=== PATIENT | male | born 1980 | race Caucasian/White ===

== ENCOUNTER → 2021-03-05 19:45 | Outpatient (CLI) | payer BC, SELFPAY | PROVIDERS: Visit Provider Nurse Practitioner Family | DX: Z20.822 Contact with and (suspected) exposure to COVID-19 (principal) | CPT/HCPCS: C9803; U0003; U0005 ==

== ENCOUNTER → 2021-03-07 19:28 | Outpatient (CLI) | payer BC, SELFPAY | PROVIDERS: Visit Provider Nurse Practitioner Family | DX: Z20.822 Contact with and (suspected) exposure to COVID-19 (principal) | CPT/HCPCS: C9803; U0003; U0005 ==

== ENCOUNTER 2022-03-04 04:54 | Emergency (ER) | payer BC, SELFPAY ==
[2022-03-04 04:57] VITALS: BP 131/86; PULSE 64; RESP 16; TEMP 36.7; O2SAT 98; BMI 27.8
--- NOTE | 2022-03-04 05:04 | PC.NURSE ---
visual acuity both 20/20 lt eye 20/25 rt eye 20/25
--- NOTE | 2022-03-04 05:33 | HMH.EDEYEP ---
Discharge Plan Disposition Patient Disposition: Home, Self-Care Chief Complaint: Eye Problems Prescriptions Prescriptions: No Action buprenorphine-naloxone 1 EACH film 1 each SL DAILY Referrals Follow up/Referrals: Daniel Davidson MD [Primary Care Provider] - See instructions Activity Restrictions/Add. Instructions Additional Instructions/Restrictions: call dr guerrero this am for follow up Clinical Impressions Clinical Impression: Corneal FB (foreign body) Instructions Patient Instructions: DI for Corneal Foreign Body-Eye Discharge ED Provider: Daniel Davidson Eye Problem HPI General Chief complaint: Eye Problems Stated complaint: Right eye pain from rust Time Seen by Provider: 03/04/22 05:33 Mode of Arrival: Ambulatory Source of Information: Patient and Medical Record Limitations: No Limitations Description of Symptoms (Recalled from ER Triage Doc. by RN): pt states last night was working on an exhuast and a piece of rust fell into rt eye. pt c/o rt eye pain History of Present Illness HPI Narrative: fb rt eye since last pm chief complaint: foreign body Onset (ago): hour(s) Location: right eye Eye Symptoms: foreign body sensation Place: home Mechanism: occurred while hammering/grinding Severity: moderate Associated symptoms: none Related Data Patient tetanus UTD: Yes Home Medications Medication Instructions Recorded Confirmed buprenorphine 8 mg-naloxone 2 mg 1 each SL DAILY Pain 02/02/19 03/04/22 sublingual film Allergies Allergy/AdvReac Type Severity Reaction Status Date / Time No Known Allergies Allergy Verified 03/07/21 18:57 [facility] Social History Smoking Status: Current every day smoker alcohol intake: never current occupational status: employed Travel in the last 8 weeks: None ROS Obtained: Yes All systems reviewed & no additional complaints except as documented Eyes Eyes: Reports as per HPI, Denies change in vision, Denies loss of vision, Reports sensitivity to light and Denies photophobia Neurologic Neurologic: Denies loss of vision Physical Exam General General appearance: alert Head Head exam: normocephalic Eye Eye exam: Present PERRL, EOMI and other (fb rt corneal at 0800) Expanded Eye Exam Visual acuity (R) = 20/: 25 Visual acuity (L) = 20/: 25 With correction: No ENT ENT exam: Present mucous membranes moist Neck Neck exam: Present trachea midline Respiratory Respiratory exam: Present normal lung sounds bilaterally Cardiovascular Cardiovascular exam: Present regular rate Neurological Exam Neurological exam: Present alert, oriented X3 and CN II-XII intact Skin Skin exam: Absent rash Medical Decision Making Medical Records Medical records reviewed: Yes I reviewed the patient's medical records. Aba Inquiry Pt receiving controlled substance: No Vital Signs: 03/04/22 04:57 Temperature 98.1 F Temperature Source Oral Pulse Rate [Right] 64 Respiratory Rate 16 Blood Pressure [Right Arm] 131/86 Blood Pressure Mean [Right Arm] 101 02 Sat by Pulse Oximetry 98 Lab Data Lab results reviewed: Yes I reviewed the patient's lab results. Medical Decision Narrative: retained fb rt eye with rust ring Procedures Eye Exam/FB Removal Location: eye (R) Topical anesthetic used: tetracaine Fluorescein Stick(s) used: No Procedure performed under: direct visualization with magnification Foreign body: other (rust ring) Evidence of corneal penetration: No Technique: cotton tip swab Post-procedure medication: ophthalmic antibiotic Patient tolerated procedure: no complications Complications: incomplete foreign body removal and residual rust ring Critical Care Time Critical Care Time Critical Care Time: No Attestation: On 03/04/22, the high probability of a clinically significant, sudden or life threatening deterioration of the following system(s) required my full and direct attention, intervention and personal management. The ti
[2022-03-04 05:44] VITALS: BP 129/87; PULSE 68; RESP 16; TEMP 36.7; O2SAT 98
== END 2022-03-04 05:45 | disposition home or self-care (01) ==
PROVIDERS: Emergency Provider Emergency Medicine; PCP Emergency Medicine
DX: T15.01XA Foreign body in cornea, right eye, initial encounter (principal); F17.210 Nicotine dependence, cigarettes, uncomplicated
CPT/HCPCS: 99283

== ENCOUNTER 2024-08-25 10:29 | Outpatient (CLI) | payer BC, SELFPAY | END 2024-08-25 23:59 | disposition home or self-care (01) | LOC: SL 10:31 | PROVIDERS: Visit Provider Specialist | DX: G40.909 Epilepsy, unspecified, not intractable, without status epilepticus (principal) | CPT/HCPCS: 95819 ==

== ENCOUNTER 2024-09-08 08:08 | Day surgery (SDC) | payer BC, SELFPAY ==
[2024-09-06 16:32] VITALS: BMI 27.8
[2024-09-08] VITALS (8 sets, daily range): BP systolic 101–139; BP diastolic 59–85; PULSE 51–66; RESP 15–16; TEMP 36.1; O2SAT 97–100
[2024-09-08] MEDS: LACTATED RINGERS 1000ML 1,000 ML 50 ML IV (09:28)
--- NOTE | 2024-09-08 09:28 | EXP.ANES.CKL ---
[facility] Disclaimer: The information contained in this section may have been updated after the patient was seen, as this information can be updated by other users. Medical History (Updated 09/08/24 @ 09:26 by Sana Hough RN) Anxiety and depression Loss of consciousness Seizure Surgical History History of tonsillectomy Family History Father Cancer Hypertension Mother Glaucoma Social History (Updated 09/08/24 @ 09: by Sana Hough RN) Smoking Status: Current every day smoker tobacco type: cigarettes packs per day: 1 alcohol intake: never substance use type: former substance user and painkillers current occupational status: unemployed Travel in the last 8 weeks: None caffeine: Yes Have you lived/traveled outside [place] in past 30 days?: No Contact w/someone who lives/traveled outside [place] past 30 days?: No Exposure to someone with infectious disease in past 14 days?: No Do you have a fever (greater than 100.4 F or 38 C)?: No Have you tested positive for COVID-19: No Exposed to someone with COVID-19 in past 14 days?: No Do you have a sore throat?: No Do you have a cough?: No Do you have any weakness?: No Are you experiencing any nausea/vomitting?: No Do you have any diarrhea?: No Are you experiencing any unusual bleeding?: No Do you have any muscle aches/pain?: No Do you have any abdominal pain?: No Are you experiencing loss of taste or smell?: No [facility] Anesthesia Checklist Patient Identification Patient Identification: Arm Band Structural Data Admitted From: Home Planned Operative Procedure/s: Colonoscopy Consent for Planned Operative Procedure(s) Verified: Yes Verified Documents: Surgical Consent and History and Physical NPO Status Verified Time NPO: 00:00 Additional verifications Anesthesia Reactions: No Airway Assessment Mallampati Score:: Class II C-Spine Mobility Assessed: Yes TMJ Mobility Assessed: Yes Dentition: Good Dentition Neurological Assessment Level of Consciousness: Awake, Alert and Appropriate Anesthesia Plan Anesthesia Risk discussed: Yes Anesthesia Plan: Verified ASA Class: II Anesthesia Type: MAC
--- NOTE | 2024-09-08 09:56 | P.HP_ITS ---
History of Present Illness *Admission Date: 09/08/24 *Reason for visit:: Screening high risk (family history) *History of present illness: Mr. To is a 44-year-old gentleman who is here for initial screening colonoscopy. His father had colon cancer at the age of 42. The examination is deemed medically necessary for screening colonoscopy. The patient has been seen, interviewed and examined prior to the procedure by both myself and the anesthesia provider. [facility] Disclaimer: The information contained in this section may have been updated after the patient was seen, as this information can be updated by other users. Medical History (Updated 09/08/24 @ 10:06 by Rajiv El II, MD) Anxiety and depression Loss of consciousness Seizure Surgical History History of tonsillectomy Family History Father Cancer Hypertension Mother Glaucoma Social History (Updated 09/08/24 @ 09:26 by Sana Hough RN) Smoking Status: Current every day smoker tobacco type: cigarettes packs per day: 1 alcohol intake: never substance use type: former substance user and painkillers current occupational status: unemployed Travel in the last 8 weeks: None caffeine: Yes Have you lived/traveled outside [place] in past 30 days?: No Contact w/someone who lives/traveled outside [place] past 30 days?: No Exposure to someone with infectious disease in past 14 days?: No Do you have a fever (greater than 100.4 F or 38 C)?: No Have you tested positive for COVID-19: No Exposed to someone with COVID-19 in past 14 days?: No Do you have a sore throat?: No Do you have a cough?: No Do you have any weakness?: No Are you experiencing any nausea/vomitting?: No Do you have any diarrhea?: No Are you experiencing any unusual bleeding?: No Do you have any muscle aches/pain?: No Do you have any abdominal pain?: No Are you experiencing loss of taste or smell?: No Other Medical History Have you received the Flu Vaccine for this season: Yes Have you received the Pneumonia Vaccine: No Review of Systems Review of Systems Review of systems (narrative): Negative *Cardiovascular Comments: Negative *Gastrointestinal Comments: Negative *Genitourinary Comments: Negative *Musculoskeletal Comments: Negative *Neurologic Comments: Negative Meds Home Medications and Allergies Home Medications ?Medication ?Instructions ?Recorded ?Confirmed ?Type buprenorphine 8 mg-naloxone 2 mg 1 each sublingual DAILY Pain 02/02/19 09/08/24 History sublingual film levetiracetam 500 mg tablet 500 mg PO DAILY 07/02/24 09/08/24 History peg 3350-electrolytes 236 240 ml PO Q10M colonscopy #4,000 mL 08/25/24 Rx gram-22.74 gram-6.74 gram-5.86 gram solution (Golytely) New Prescriptions to Start Prescriptions: Allergies Allergy/AdvReac Type Severity Reaction Status Date / Time No Known Allergies Allergy Verified 09/08/24 09:11 Exam Data for Last 24 hours Vital signs and Labs for Last 24 Hours: Temp Pulse Resp BP Pulse Ox O2 Del Method 97.0 F L 58 L 16 133/68 100 Room Air 09/08/24 09:14 09/08/24 09:14 09/08/24 09:14 09/08/24 09:14 09/08/24 09:14 09/08/24 09:14 I & O for Last 24 hours: Intake & Output 09/05/24 09/06/24 09/07/24 09/08/24 23:59 23:59 23:59 23:59 Weight 200 lb *Routine HEENT Exam Head: Present normocephalic Eye: Present EOMI and PERRL ENT: Present mucous membranes moist *Routine Neck Exam Neck: Present supple *Routine Respiratory Exam Respiratory: Present CTA bilaterally *Routine Cardiovascular Exam Cardiovascular: Present RRR *Routine Abdominal Exam Abdominal: Present soft and normoactive bowel sounds; Absent tenderness *Routine Rectal Exam Rectal:: deferred *Routine Genitalia Exam Genitalia:: deferred *Routine Extremities Exam Extremities: Absent cyanosis, clubbing or edema *Routine Skin Exam Skin: Present warm; Absent rash *Routine Neurological Exam Neurological: Present alert and oriented X3 Assessment and Plan *Assessment and plan (1) Screening for colorectal cancer: Status: Acute Category: Medical Code(s): Z12.11 - Encounter for screening for malignant neoplasm of colon; Z12.12 - Encounter for screening for malignant neoplasm of rectum (2) Family history of colon cancer in father: Status: Acute Category: Medical Code(s): Z80.0 - Family history of malignant neoplasm of digestive organs Plan A/P: 1. High risk screening colonoscopy is the preprocedural diagnosis. The patient's father had colon cancer at the age of 42 and this is the patient's first colonoscopy for screening. The patient will be anesthetized/sedated using MAC sedation. The patient has been seen and examined. Cardiac and lung assessment prior to the examination is stable. Proceed with planned screening colonoscopy
--- NOTE | 2024-09-08 10:06 | HMH.PROCNOTE ---
[facility] Procedure Note Date: 09/08/24 Time: 10:10 Procedure Note:: Aborted colonoscopy Procedure Report: Flexible sigmoidoscopy Endoscopist: Rajiv El II, MD Referring physician: Edy Bey DO Date of Procedure: September 08, 2024 Equipment: Olympus 190 variable stiffness pediatric colonoscope Sedation: MAC sedation Indication: Mr. To is a 44-year-old gentleman who is here for initial high risk screening colonoscopy. The patient's father had colon cancer at the age of 42. The patient reports no abdominal pain, weight loss, change in his bowel habits or rectal bleeding. Procedure: Prior to the procedure, a history and physical exam was performed, and patient's medications and allergies were reviewed. The risks, benefits and alternatives of the sedation and procedure were discussed with the patient. All questions were answered and informed consent was obtained. The patient was brought to the procedure room. Patient identification and proposed procedure were verified by the physician and the nurse. The patient was placed in a left lateral decubitus position and the scope was passed under direct vision. Throughout the procedure, the patient's blood pressure, pulse, and oxygen saturations were monitored continuously. The colonoscopy was accomplished without difficulty. The patient tolerated the procedure well. Findings: On digital rectal examination there was normal rectal tone. There were no external hemorrhoids. The scope was then inserted through the anal canal under the rectum and advanced to 30 cm. There was abundant brown liquid stool impairing visualization of the colonic mucosa. The preparation was very inadequate and thus the procedure was aborted. Impression: 1. Inadequate bowel preparation Plan: The patient will need repeat high risk screening colonoscopy with improved bowel preparation.
== END 2024-09-08 11:43 | disposition home or self-care (01) ==
PROVIDERS: PCP Internal Medicine; Visit Provider Internal Medicine Gastroenterology
PROC: 0DJD8ZZ Inspection of Lower Intestinal Tract, Via Natural or Artificial Opening Endoscopic (ICD-10-PCS; CPT 45378; principal; 2024-09-08 09:30)
DX: Z53.8 Procedure and treatment not carried out for other reasons (principal); Z12.11 Encounter for screening for malignant neoplasm of colon; Z12.12 Encounter for screening for malignant neoplasm of rectum; Z80.0 Family history of malignant neoplasm of digestive organs
CPT/HCPCS: 45378; J7120